=== PATIENT | male | born 1985 | race Caucasian/White ===

== ENCOUNTER 2018-12-29 01:15 | Emergency (ER) | payer BC ==
[~2018-12-29] VITALS: Ht 177.8 cm; Wt 79.4 kg
[2018-12-29 01:15] VITALS: BP 150/109
--- NOTE | 2018-12-29 01:15 | NUR ---
TO BED # 10 AMBULATORY
--- NOTE | 2018-12-29 01:20 | NUR ---
33 YO MALE COMES TO ED FOR C/O PALPITATIONS. PT STATED WHEN HE WAS @ HOME; HR WAS 180S. PT DENIES CP/SOB. DENIES N/V/D. DENIES LIGHTHEADEDNESS OR BLURRED VISIONS. SR-ST 90-110S WITH OCCASIONAL PVCS +2 RADIAL/PEDAL PULSES. NO EDEMA. S1 S2 HEARD. PT STATES HE FEELS ANXIOUS AND CONSTANTLY LOOKING AT [employer]VE[employer]. PT STATES HE HAS BEEN BINGE DRINKING ALCOHOL X 1 WEEK, UNDER HEAVY STRESS @ HOME PT REASSURED ABOUT COUGH/DEEP BREATHING, RELAXTION TECHIQUES. WILL UPDATE ERMD. WILL CONTINUE TO OBSERVE. 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
[2018-12-29] MEDS ORDERED: METOPROLOL 5 MG/5 ML VIAL IVP ONE (01:50)
--- NOTE | 2018-12-29 02:07 | NUR ---
5 MG IVP METOPROLOL GIVEN. HR 101 BP 141/82.
--- NOTE | 2018-12-29 02:30 | NUR ---
HR 74 NSR BP 110/68. PT DENIES CP/SOB. VSS. DENIES PAIN.
[2018-12-29 02:33] LABS: RED BLOOD CELL COUNT(AUTO) 4.21 MIL/uL (4.20-6.10); RED CELL DISTRIBUTION WIDTH 13.1 % (11.6-13.7)
[2018-12-29 02:36] LABS: HEMOGLOBIN 14.7 g/dL (12.0-18.0); MEAN CORPUSCULAR HEMOGLOBIN 35 pg (27-31); MEAN CORPUSCULAR HGB CONC 34 g/dL (33-37); MEAN CORPUSCULAR VOLUME 102.3 fL (80-94); PLATELET COUNT (AUTO) 334 K/uL (140-450); WHITE BLOOD COUNT (AUTO) 6.5 K/uL (4.8-10.8)
[2018-12-29 02:41] LABS: LYMPHOCYTES % (MANUAL) 58 % (20-46); MONOCYTES % (MANUAL) 4 % (5-12)
[2018-12-29 02:42] LABS: ANION GAP 16.1 (8-16); CARBON DIOXIDE 27.2 mmol/L (21-32); CREATININE 1.1 mg/dL (0.7-1.3); POTASSIUM 3.3 mmol/L (3.5-5.1)
[2018-12-29 02:55] LABS: THYROID STIMULATING HORMONE 6.07 uIU/mL (0.34-3.74)
[2018-12-29 03:06] LABS: BARBITURATE, URINE NEGATIVE ng/ml (NEG <=200); BENZODIAZEPINE, URINE NEGATIVE ng/mL (NEG <=200); CANNABINOID, URINE NEGATIVE ng/mL (NEG <=50); COCAINE, URINE NEGATIVE ng/mL (NEG <=300); OPIATE, URINE NEGATIVE ng/mL (NEG <=2000); PHENCYCLIDINE SCREEN,URINE NEGATIVE ng/mL (NEG <=25)
[2018-12-29] MEDS ORDERED: MAGNESIUM OXIDE 400 MG TAB PO ONE (03:15)
[2018-12-29] MEDS ORDERED: POTASSIUM CHLORIDE 10 MEQ TABER PO ONE (03:15)
[2018-12-29] MEDS ORDERED: MAGNESIUM OXIDE 400 MG TAB ONE (03:28)
[2018-12-29 04:00] VITALS: BP 110/71
--- NOTE | 2018-12-29 04:05 | NUR ---
Patient discharged with v/s stable. Written and verbal after care instructions given and explained. Patient verbalized understanding. Ambulatory with steady gait. All questions addressed prior to discharge. Advised to follow up with PMD.
== END 2018-12-29 04:05 | disposition home or self-care (01) ==
LOC: MED 01:15
DX: R00.2 Palpitations (principal); E87.6 Hypokalemia; F10.10 Alcohol abuse, uncomplicated; F41.9 Anxiety disorder, unspecified; F43.10 Post-traumatic stress disorder, unspecified; I45.6 Pre-excitation syndrome; Z91.14 Patient's other noncompliance with medication regimen
CPT/HCPCS: 36415; 80048; 80305; 83735; 84443; 85025; 93005; 96374; 99284; J3490